=== PATIENT | female | born 1950 | race Caucasian/White ===

== ENCOUNTER 2016-09-08 17:57 | Emergency (ER) | payer MEDICARE, OTHER | END 2016-09-08 19:25 | disposition home or self-care (01) | LOC: ER 17:57 | DX: J44.9 Chronic obstructive pulmonary disease, unspecified (principal); Z78.0 Asymptomatic menopausal state; I25.2 Old myocardial infarction; G89.29 Other chronic pain; Z95.1 Presence of aortocoronary bypass graft; Z87.891 Personal history of nicotine dependence; Z88.1 Allergy status to other antibiotic agents; Z88.8 Allergy status to other drugs, medicaments and biological substances; Z79.82 Long term (current) use of aspirin; Z79.891 Long term (current) use of opiate analgesic; Z79.899 Other long term (current) drug therapy; Z79.02 Long term (current) use of antithrombotics/antiplatelets | CPT/HCPCS: 71020; 87070; 87205; 87400; 99283; 99283-25 ==

== ENCOUNTER 2016-11-27 18:51 | Emergency (ER) | payer MEDICARE, OTHER | END 2016-11-27 18:54 | disposition left against medical advice (07) | LOC: ER 18:51 | DX: Z53.21 Procedure and treatment not carried out due to patient leaving prior to being seen by health care provider (principal) | CPT/HCPCS: 99211 ==